=== PATIENT | male | born 1955 | race American Indian/Alaskan Native ===

== ENCOUNTER 2019-04-29 10:44 | Emergency (ER) | payer MEDICARE ==
[2019-04-29 10:48] VITALS: BP 116/74
[2019-04-29] MEDS ORDERED: oxyCODONE /ACETAMINOPHEN 5-325MG TAB PO ONE (10:55)
--- NOTE | 2019-04-29 11:05 | Emergency Department Report ---
ED Lower Extremity HPI - General Chief Complaint: Extremity Injury, Lower Stated Complaint: R LEG PAIN/SWELLING Time Seen by Provider: 04/29/19 10:55 Source: patient Mode of arrival: Stretcher Limitations: Physical Limitation - History of Present Illness Initial Comments: Mr. Hair is a 63 yo male with hx of CKD, CHF who presents with severe right foot pain. Gradual onset for the past 5 days. Hurts to weight bear. Pain at the heel and sole. Hurts with palpation. No trauma. No hx of gout or arthritis. MD Complaint: other (right foot pain without trauma) -: Gradual, days(s) (5) Injury: Foot: Right Place: home Severity: severe Severity scale (0 -10): 7 Improves With: nothing Worsens With: weight bearing Context: other (no trauma) - Related Data Previous Rx's Medication Instructions Recorded Last Taken Type oxyCODONE /ACETAMINOPHEN [Percocet 1 tab PO Q6HR PRN #10 tablet 04/29/19 Unknown Rx 5/325] Allergies Allergy/AdvReac Type Severity Reaction Status Date / Time No Known Allergies Allergy Unverified 04/29/19 10:48 ED Review of Systems ROS: Stated complaint: R LEG PAIN/SWELLING Other details as noted in HPI Constitutional: denies: fever, malaise Respiratory: denies: cough, shortness of breath Skin: denies: rash, lesions, change in color, change in hair/nails Neurological: denies: numbness, paresthesias ED Past Medical Hx - Past Medical History Previous Medical History?: Yes Hx Hypertension: Yes Hx Congestive Heart Failure: Yes Additional medical history: Kidneys disease - Social History Smoking Status: Current Every Day Smoker Substance Use Type: None - Medications Home Medications: Home Medications Medication Instructions Recorded Confirmed Last Taken Type oxyCODONE /ACETAMINOPHEN [Percocet 1 tab PO Q6HR PRN #10 tablet 04/29/19 Unknown Rx 5/325] ED Physical Exam - General Limitations: Physical Limitation General appearance: alert, in no apparent distress - Head Head exam: Present: atraumatic, normocephalic - Eye Eye exam: Present: conjunctival injection - ENT ENT exam: Present: mucous membranes moist - Neck Neck exam: Present: normal inspection, full ROM - Respiratory Respiratory exam: Absent: respiratory distress - Expanded Lower Extremity Exam Right Lower Leg exam: Present: normal inspection, full ROM. Absent: tenderness, swelling Ankle exam: Present: normal inspection, full ROM. Absent: tenderness, swelling Foot/Toe exam: Present: normal inspection, tenderness (bottom heel exquisite tenderness). Absent: swelling, abrasion, laceration, ecchymosis, deformity, crepidus, dislocation, erythema, puncture wound Neuro vascular tendon exam: Present: no vascular compromise ED Course Vital Signs 04/29/19 10:44 Temperature 98.3 F Pulse Rate 72 Respiratory 18 Rate Blood Pressure 116/74 [Right] O2 Sat by Pulse 95 Oximetry ED Lower Extremity MDM - Medical Decision Making atraumatic right foot pain, neurovascular intact, no evidence of infection. No wound or ulcer. DDX includes plantar fasciitis versus bone spur versus neuropathy Prescribed Percocet. Referred to ankle/family program specialist Critical care attestation.: If time is entered above; I have spent that time in minutes in the direct care of this critically ill patient, excluding procedure time. ED Disposition Clinical Impression: Plantar fasciitis of right foot Disposition: DC- TO HOME OR SELFCARE Is pt being admited?: No Does the pt Need Aspirin: No Condition: Stable Instructions: Plantar Fasciitis (ED) Prescriptions: oxyCODONE /ACETAMINOPHEN [Percocet 5/325] 1 tab PO Q6HR PRN #10 tablet PRN Reason: Pain Referrals: SANDEEP GODDARD DPM [Staff Physician] - 3-5 Days
== END 2019-04-29 11:26 | disposition home or self-care (01) ==
LOC: ED 10:44
DX: M72.2 Plantar fascial fibromatosis (principal)